=== PATIENT | male | born 1965 | race Caucasian/White ===

== ENCOUNTER 2024-01-16 21:26 | Emergency (ER) | payer MEDICAID, SELFPAY ==
[2024-01-16] VITALS (8 sets, daily range): BP systolic 101–120; BP diastolic 49–70; PULSE 67–95; RESP 16–18; TEMP 36.8; O2SAT 92–98
--- NOTE | 2024-01-16 21:30 | DI.CT_ITS ---
Exam(s) CT HEAD CERV SPINE FACIAL WO EXAM: CT HEAD CERV SPINE FACIAL WO CLINICAL HISTORY: fall, head/facial trauma. TECHNIQUE: Imaging Protocol: Axial computed tomography images with coronal and sagittal reformatted images were created and reviewed COMPARISON: No exams were available for comparison FINDINGS: CT Head: Ventricles and Extra axial spaces: Normal in size and morphology for the patient's age. Hemorrhage: None. Cerebral parenchyma: Normal. Midline shift: None. Brainstem/Cerebellum: Normal. Calvarium: Normal. Visualized Paranasal sinuses/Mastoids: Clear. Soft Tissues: Unremarkable. CT Face: Facial Bones: No definite fracture is noted in facial bones. There is depression fracture of the rig ht nasal bone. No overlying soft tissue swelling is seen. This most likely represents an old fractu re. Sinuses and Mastoids: There is a mucous retention cyst or polyp in the left maxillary sinus. The vi sualized paranasal sinuses are otherwise clear. Globes, extraocular muscles, optic nerves and retrobulbar fat: Normal. Upper aerodigestive tract: Normal. Mandible and bilateral temporomandibular joints: Normal. Soft tissues: There is left periorbital soft tissue swelling. No radiopaque foreign bodies are ident ified. There are few small foci of air in the periorbital soft tissues. CT Cervical Spine: Bones: No acute fracture or subluxation. Age-appropriate degenerative changes are seen in the spine. Soft Tissues: Unremarkable. Lung Apices: Clear. IMPRESSION: 1. No acute intracranial process. 2. No acute fracture or subluxation in the cervical spine. 3. No acute facial fracture. 4. Left periorbital soft tissue swelling with subcutaneous gas. No radiopaque foreign bodies. RADIATION DOSE DELIVERED: 2,145.24mGy.cm Total DLP DATA REPOSITORY: All CT scans at this facility are submitted to the National Radiology Data Registry (NRDR) Dose Index Registry (DIR) with the [employer] (A[employer]). RADIATION OPTIMIZATION: All CT scans at this facility use at least one of these dose optimization te chniques: automated exposure control; mA and/or kV adjustment per patient size (includes targeted exa ms where dose is matched to clinical indication); or iterative reconstruction.
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
--- NOTE | 2024-01-16 22:00 | RT.EKG_ITS ---
APPROVED REPORT Exam: Resting ECG Reason for Exam: fall, possible syncope Patient Location: E HR:74 bpm ECG Measurements Heart Rate 74 AXIS NC 170 P 66 QRSd 84 QRS 41 QT 395 T 21 QTc 438 Conclusion Sinus rhythm...normal P axis, V-rate 60- 99 Ventricular bigeminy...bigeminy string>4 w/ V complexes Borderline ST elevation, anterolateral leads...ST >0.06mV, I aVL V2-V6 appropriate intervals No ST segment or T wave abnormalities to suggest occlusive CO
[2024-01-16 22:25] LABS: Abs Immature Grans 0.04 10^3/uL (0.0-0.06); Absolute Basophil Count 0.05 10^3/uL (0.0-0.2); Absolute Eosinophil Count 0.12 10^3/uL (0.0-0.7); Absolute Lymphocyte Count 2.16 10^3/uL (1.2-3.4); Basophils % 0.7 %; Eosinophils % 1.6 %; HCT 41.5 % (40.0-50.0); HGB 14.3 g/dL (13.5-17.5); Immature Grans % 0.5 %; Lymphocytes % 29.3 %; MCH 33.1 pg (27.0-33.0); MCHC 34.5 % (32.0-36.0); MCV 96 fL (80-95); Monocytes % 8.1 %; Neutrophils % 59.8 %; Platelet Count 197 10^3/uL (130-400); RBC 4.32 10^6/uL (4.36-5.78); RDW 12.8 % (11.8-14.1); RDW-SD 46.1 fL; WBC 7.37 10^3/uL (4.4-10.8)
[2024-01-16 22:47] LABS: ALT 61 U/L (16-63); AST 36 U/L (15-37); Alkaline Phosphatase 81 U/L (46-116); Anion Gap 10.8 mmol/L (3-11); BUN 10 mg/dL (7-18); Bilirubin, Total 0.4 mg/dL (0.2-1.0); CO2 26.2 mmol/L (21.0-32.0); CREATININE 1.1 mg/dL (0.70-1.30); Calcium 8.6 mg/dL (8.5-10.1); Chloride 104 mmol/L (98-107); Estimated GFR 76.85 (mL/min/1.73m2); Glucose 97 mg/dL (74-106); Potassium 3.9 mmol/L (3.5-5.1); Sodium 141 mmol/L (136-145); Total Protein 7.1 g/dL (6.4-8.2)
--- NOTE | 2024-01-16 23:08 | DI.VRAD_ITS ---
PROCEDURE INFORMATION: Exam: CT Head Without Contrast Exam date and time: 01/16/2024 9:54 PM Age: 58 years old Clinical indication: Other: Fall, head/facial trauma TECHNIQUE: Imaging protocol: Computed tomography of the head without contrast. COMPARISON: No relevant prior studies available. FINDINGS: Brain: Normal. No hemorrhage. Unremarkable white matter. No mass effect. Cerebral ventricles: No ventriculomegaly. Paranasal sinuses: There are a few scattered opacified ethmoid air cells. Other paranasal sinuses are unremarkable. Mastoid air cells: Visualized mastoid air cells are well aerated. Bones: Mildly displaced nasal bone fractures, likely chronic. No acute fracture. Soft tissues: Left supraorbital soft tissue swelling and gas, consistent with open wound. Vasculature: Calcified atherosclerotic disease. IMPRESSION: No acute fracture or intracranial hemorrhage. PROCEDURE INFORMATION: Exam: CT Maxillofacial Without Contrast Exam date and time: 01/16/2024 9:54 PM Age: 58 years old Clinical indication: Other: Fall, head/facial trauma TECHNIQUE: Imaging protocol: Computed tomography of the face without contrast. COMPARISON: No relevant prior studies available. FINDINGS: Tubes, catheters and devices: Small fixation wire at the left angle of the mandible. Orbital cavities: Orbits are normal. Globes are unremarkable. Paranasal sinuses: Left maxillary sinus mucous retention cyst. Scattered ethmoid air cell opacification. Other paranasal sinuses are unremarkable. Dental: Periapical lucency of the maxillary left lateral incisor. Other small dental cavities are also present. Vasculature: Calcified atherosclerotic disease. Bones: Mildly displaced nasal bone fractures without overlying soft tissue swelling are likely chronic. Soft tissues: Left supraorbital soft tissue swelling in gas, consistent with open wound. IMPRESSION: 1. Left supraorbital soft tissue injury. 2. Mildly displaced nasal fractures, likely chronic. 3. Mild chronic paranasal sinus disease. PROCEDURE INFORMATION: Exam: CT Cervical Spine Without Contrast Exam date and time: 01/16/2024 9:54 PM Age: 58 years old Clinical indication: Other: Fall, head/facial trauma TECHNIQUE: Imaging protocol: Computed tomography of the cervical spine without contrast. COMPARISON: No relevant prior studies available. FINDINGS: Bones: Mild C3-C4 disc space narrowing and endplate degenerative spurring. Mild multilevel facet arthropathy. No acute fracture or dislocation. Posterior osteophytes and facet arthropathy result in mild left neural foraminal stenosis. No significant central canal or other neural foraminal stenosis. Lungs: Lung apices are normal. Vasculature: Calcified atherosclerotic disease. Soft tissues: Unremarkable. IMPRESSION: 1. No acute fracture. 2. Mild C3-C4 spondylosis. Dictated and Authenticated by: Hamilton Mccullough MD. Ordering:SAMMY Tamez MD
--- NOTE | 2024-01-16 23:19 | ED.PROG_ITS ---
Date of service: 01/16/24 Time of Service: 23:19 Medical Decision Making This patient was signed out to me. Please see previous notes for H&P and initial eval. In brief, 58yo M presenting with heroin intoxication and fall with head strike Unclear if mechanical or syncope, patient does not remember event. Head CT normal and initial bloodwork/EKG reassuring. Signed out pending 3 hour troponin and reassessment after allowed some time to metabolize substances. Troponin negative; would not further pursue acute coronary syndrome. Added ETOH level which was 70. On reassessment patient alert and requesting discharge home. Ambulates steadily independently. Clinically sober. Discharged; discharge instructions and return precautions were reviewed with patient who verbalized understanding. All questions were answered and he is in full agreement with the plan. Lab Data Lab results reviewed: Yes I reviewed the patient's lab results. Labs: Laboratory Tests Range/Units 01/16/24 01/17/24 22:23 00:00 WBC (4.4-10.8) 10^3/uL 7.37 RBC (4.36-5.78) 10^6/uL 4.32 L Hgb (13.5-17.5) g/dL 14.3 Hct (40.0-50.0) % 41.5 MCV (80-95) fL 96 H MCH (27.0-33.0) pg 33.1 H MCHC (32.0-36.0) % 34.5 RDW (11.8-14.1) % 12.8 Plt Count (130-400) 10^3/uL 197 MPV (8.0-11.0) fL 9.0 Immature Gran % % 0.5 Neutrophils % % 59.8 Lymphocytes % % 29.3 Monocytes % % 8.1 Eosinophils % % 1.6 Basophils % % 0.7 Nucleated RBC % (0.0-0.3) % 0.0 Absolute Neutrophils (1.2-6.7) 10^3/uL 4.40 Absolute Lymphocytes (1.2-3.4) 10^3/uL 2.16 Absolute Monocytes (0.1-0.8) 10^3/uL 0.60 Absolute Eosinophils (0.0-0.7) 10^3/uL 0.12 Absolute Basophils (0.0-0.2) 10^3/uL 0.05 Sodium (136-145) mmol/L 141 Potassium (3.5-5.1) mmol/L 3.9 Chloride (98-107) mmol/L 104 Carbon Dioxide (21.0-32.0) mmol/L 26.2 Anion Gap (3-11) mmol/L 10.8 BUN (7-18) mg/dL 10 Creatinine (0.70-1.30) mg/dL 1.1 Est GFR (CKD-EPI 2020) (mL/min/1.73m2) 76.85 Glucose (74-106) mg/dL 97 Calcium (8.5-10.1) mg/dL 8.6 Total Bilirubin (0.2-1.0) mg/dL 0.4 AST (15-37) U/L 36 ALT (16-63) U/L 61 Alkaline Phosphatase (46-116) U/L 81 Troponin I (< or =60) ng/L < 50 Total Protein (6.4-8.2) g/dL 7.1 Albumin (3.4-5.0) g/dL 4.0 Ethyl Alcohol (<10) mg/dL 70.1 H Quality:SDOH Health Related Social Needs: No Data to Display Sign Out Sign Out Data: Sign Out Comment: Fall - related to acute heroin or polysubstance intox Soft tissue facial abrasions need simple wound care. Trop at 0030 pending. with MTF. D/C likely Last updated by Dashawn Little PA at 01/16/24 23:11 Discharge Plan Disposition Patient Disposition: Home Condition: Stable Discharge Details Clinical Impression: Fall Primary Care Provider: Rufino Jeffries ED Provider: Jasmyn Bauer Home Meds and New Rx's Prescriptions: Continued meloxicam 7.5 mg tablet 7.5 mg PO DAILY Rx Instructions: Take orally 1 tab at night for 7 days nitroglycerin 0.4 mg tablet, sublingual 0.4 mg sublingual Q5M PRN (Reason: chest pain) Qty: 20 2RF Rx Instructions: do not exceed 3 doses per episode aspirin [Hollie Low Dose Aspirin] 81 mg tablet,delayed release (DR/EC) 81 mg PO DAILY Qty: 90 3RF Discharge Instructions Instructions: Head injury in adults, Abrasions ED Additional Instructions: You were seen in the emergency department for your fall with left-sided abrasions most focal to your face. These are superficial and do not appear to have any acute emergent intracranial pathology or cervical spine fracture. Please treat them by keeping them clean and dry and using OTC antibiotic ointments and normal wound care. Your EKG shows no signs of cardiac cause of syncope, we are checking a troponin, your basic labs are normal. Please cessate heroin and other illicit substance use especially in conjunction with alcohol as this is a significant risk to your health as well as further falls causing pao gerous traumas. Please return to the emergency department for any emergent concerns including further falls, fevers, chest pain, shortness of breath. Referrals: Rufino Jeffries DO [Primary Care Provider] -
[2024-01-17 00:17] LABS: ETHANOL BLOOD 70.1 mg/dL (<10)
[2024-01-17 00:23] LABS: Troponin I < 50 ng/L (< or =60)
[2024-01-17 00:53] VITALS: BP 125/65; PULSE 68; RESP 16; TEMP 36.8; O2SAT 98
== END 2024-01-17 00:53 | disposition home or self-care (01) ==
PROVIDERS: Physician Assistant; Emergency Provider Student in an Organized Health Care Education/Training Program; PCP Family Medicine
DX: F10.129 Alcohol abuse with intoxication, unspecified (principal); F11.129 Opioid abuse with intoxication, unspecified; Y90.3 Blood alcohol level of 60-79 mg/100 ml; W19.XXXA Unspecified fall, initial encounter; S00.81XA Abrasion of other part of head, initial encounter
CPT/HCPCS: 00123; 12013; 80053; 93005; 99285; 70450; 70486; 72125; 80320; 84484; 85025; 93010

== ENCOUNTER 2024-02-19 21:40 | Emergency (ER) | payer MEDICAID, SELFPAY ==
[2024-02-19] VITALS (25 sets, daily range): BP systolic 91–128; BP diastolic 52–83; PULSE 62–84; RESP 10–30; TEMP 36.6; O2SAT 93–96
--- NOTE | 2024-02-19 21:30 | RT.EKG_ITS ---
APPROVED REPORT Exam: Resting ECG Reason for Exam: OD Patient Location: E HR:79 bpm ECG Measurements Heart Rate 79 AXIS MO 180 P 61 QRSd 90 QRS 0 QT 383 T 24 QTc 439 Conclusion Sinus rhythm at a rate of 79 without acute ischemic change with normal intervals
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
[2024-02-20] VITALS (12 sets, daily range): BP systolic 103–109; BP diastolic 60–71; PULSE 60–63; RESP 15–19; O2SAT 93–96
== END 2024-02-20 01:42 | disposition home or self-care (01) ==
PROVIDERS: Emergency Provider Emergency Medicine; PCP Family Medicine
DX: T40.1X1A Poisoning by heroin, accidental (unintentional), initial encounter (principal); F19.10 Other psychoactive substance abuse, uncomplicated; I10 Essential (primary) hypertension; E78.5 Hyperlipidemia, unspecified; I25.10 Atherosclerotic heart disease of native coronary artery without angina pectoris; Z59.01 Sheltered homelessness; Z79.82 Long term (current) use of aspirin
CPT/HCPCS: 36415; 93005; 99283; 93010

== ENCOUNTER 2024-04-20 07:20 | Observation (INO) | payer OTHER, SELFPAY ==
[2024-04-20] VITALS (47 sets, daily range): BP systolic 102–134; BP diastolic 48–92; PULSE 52–79; RESP 12–28; TEMP 36.4–37.6; O2SAT 95–100
--- NOTE | 2024-04-20 07:00 | RT.EKG_ITS ---
APPROVED REPORT Exam: Resting ECG Reason for Exam: chest pain Patient Location: E HR:69 bpm ECG Measurements Heart Rate 69 AXIS WV 157 P 77 QRSd 77 QRS 36 QT 400 T 43 QTc 427 Conclusion Sinus rhythm, rate 69 PVCs No interval abnormalities No STEMI
--- NOTE | 2024-04-20 07:15 | DI.RAD_ITS ---
Exam(s) XR PORTABLE CHEST AP EXAM: XR PORTABLE CHEST AP CLINICAL HISTORY: CP TECHNIQUE: 2D digital imaging was performed. COMPARISON: No exams were available for comparison FINDINGS: LUNGS: Clear. No pleural abnormality seen. HEART: Normal size. AORTA: Normal diameter. BONES: Unremarkable for age. Soft tissues: Unremarkable. IMPRESSION: No acute findings. DATA REPOSITORY: RADIATION DOSE DELIVERED:
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
--- NOTE | 2024-04-20 07:30 | RT.EKG_ITS ---
APPROVED REPORT Exam: Resting ECG Reason for Exam: Right sided Patient Location: E HR:63 bpm ECG Measurements Heart Rate 63 AXIS WY 149 P 66 QRSd 88 QRS 19 QT 405 T 40 QTc 412 Conclusion RIGHT SIDED EKG Sinus rhythm with PVCS Rate 63 Q waves v5r and v6r No STEMI
[2024-04-20] MEDS: Aspirin 81 MG CHEW 324 MG CH (07:35)
[2024-04-20 07:52] LABS: Abs Immature Grans 0.02 10^3/uL (0.0-0.06); Absolute Basophil Count 0.06 10^3/uL (0.0-0.2); Absolute Eosinophil Count 0.19 10^3/uL (0.0-0.7); Absolute Lymphocyte Count 2.55 10^3/uL (1.2-3.4); Absolute Monocyte Count 0.67 10^3/uL (0.1-0.8); Absolute Neutrophil Count 2.57 10^3/uL (1.2-6.7); Eosinophils % 3.1 %; HCT 43.6 % (40.0-50.0); HGB 14.7 g/dL (13.5-17.5); Immature Grans % 0.3 %; Lymphocytes % 42.1 %; MCH 32.7 pg (27.0-33.0); MCHC 33.7 % (32.0-36.0); MCV 97 fL (80-95); Monocytes % 11.1 %; Neutrophils % 42.4 %; Platelet Count 190 10^3/uL (130-400); RDW 13.2 % (11.8-14.1); WBC 6.06 10^3/uL (4.4-10.8)
[2024-04-20 08:11] LABS: ALT 20 U/L (16-63); AST 21 U/L (15-37); Albumin 3.4 g/dL (3.4-5.0); Alkaline Phosphatase 82 U/L (46-116); Anion Gap 6.3 mmol/L (3-11); BUN 19 mg/dL (7-18); Bilirubin, Total 0.74 mg/dL (0.2-1.0); CO2 27.7 mmol/L (21.0-32.0); Calcium 9.2 mg/dL (8.5-10.1); Chloride 104 mmol/L (98-107); Estimated GFR 86.16 (mL/min/1.73m2); Glucose 100 mg/dL (74-106); Magnesium 1.8 mg/dL (1.8-2.4); NT-proBNP 136 pg/mL (<300); Potassium 4.1 mmol/L (3.5-5.1); Sodium 138 mmol/L (136-145); TSH 1.86 uIU/Ml (0.36-3.74); Total Protein 6.5 g/dL (6.4-8.2); Troponin I 8 ng/L (<or=76)
[2024-04-20 09:02] LABS: Troponin I 7 ng/L (<or=76)
--- NOTE | 2024-04-20 10:01 | DI.VRAD_ITS ---
PROCEDURE INFORMATION: Exam: XR Chest Exam date and time: 04/20/2024 8:22 AM Age: 58 years old Clinical indication: Pain; Radiating TECHNIQUE: Imaging protocol: Radiologic exam of the chest. Views: 1 view. COMPARISON: CT HEAD CERV SPINE FACIAL WO 01/16/2024 9:54 PM FINDINGS: Lungs: Unremarkable. No consolidation. Pleural spaces: Unremarkable. No pleural effusion. No pneumothorax. Heart/Mediastinum: Unremarkable. No cardiomegaly. Bones/joints: Unremarkable. IMPRESSION: No acute findings. Dictated and Authenticated by: Clifford Gandhi MD. Ordering:CARLOS Donis MD
[2024-04-20] MEDS: Normal Saline Flush 10 ML SYR IVP ×3 (10:25→21:34)
--- NOTE | 2024-04-20 11:20 | W.PC.ACHO ---
Registration Status: Primary Language: Preferred Language: ED Information & Data Chief Complaint Chest Pain 04/20/24 07:27 Triage Note pt arrives via ems with 04/20/24 07:14 corrections officers c/o ache in chest, fatigue, heart burn and dizziness. denies SOB. corrections found pt to be in sinus tonya at a rate of 32 with bigeminy. cardiac hx with stent. Medical / Surgical History (Last Updated 01/15/24 @ 14:11 by Darby Burkett) Alcoholism Polysubstance abuse Arthralgia of left ankle or foot Other bursal cyst, left wrist (Last Updated 01/15/24 @ 14:11 by Darby Burkett) History of arthroplasty of knee H/O heart artery stent (~06/05/13) History of left knee replacement (~2008) Most Recent Vital Signs Temperature 36.7 C 04/20/24 07:14 Temperature Source Oral 04/20/24 07:14 Pulse 58 L 04/20/24 10:15 Pulse 66 04/20/24 10:50 Respiratory Rate 17 04/20/24 10:50 Respiratory Effort Normal 04/20/24 07:37 Respiratory Depth Normal 04/20/24 07:37 Respiratory Pattern Normal 04/20/24 07:37 Blood Pressure 134/70 04/20/24 10:46 Blood Pressure Mean 81 04/20/24 10:46 Pulse Oximetry 100 04/20/24 10:50 Oxygen Delivery Method Room Air 04/20/24 07:14 Oxygen Flow Rate 0 04/20/24 07:14 Pain Level 7 04/20/24 07:14 Comment bilateral hip pain - chronic issue 04/20/24 07:14 Allergies Penicillins Allergy (Verified 04/20/24 07:22) Unknown sulfamethoxazole (From Bactrim) Adverse Reaction (Severe, Verified 04/20/24 07:22) Nausea Patient reports severe nausea trimethoprim (From Bactrim) Adverse Reaction (Severe, Verified 04/20/24 07:22) Nausea Patient reports severe nausea acetaminophen (From Vicodin) Adverse Reaction (Unknown, Verified 04/20/24 07:23) Other (See Comment) hydrocodone (From Vicodin) Adverse Reaction (Unknown, Verified 04/20/24 07:23) Other (See Comment) tramadol Adverse Reaction (Unknown, Verified 04/20/24 07:23) Other (See Comment) Precautions Isolation Standard precaution 04/20/24 07:25 Active Medications Generic Name Dose Route Start Last Admin Trade Name Nicolas PRN Reason Stop Dose Admin Sodium Chloride 0 ml 04/20/24 08:30 04/20/24 10:25 Normal Saline Flush 10 Ml Syr IVP 10 ml BID RUSS Administration IV IV Catheter Type [Left Forearm Saline Lock ] IV Catheter Gauge [Left 20 Forearm] Diagnostics 04/20/24 04/20/24 04/20/24 Range/Units 10:22 08:42 07:40 WBC 6.06 (4.4-10.8) 10^3/uL RBC 4.50 (4.36-5.78) 10^6/uL Hgb 14.7 (13.5-17.5) g/dL Hct 43.6 (40.0-50.0) % MCV 97 H (80-95) fL MCH 32.7 (27.0-33.0) pg MCHC 33.7 (32.0-36.0) % RDW 13.2 (11.8-14.1) % Plt Count 190 (130-400) 10^3/uL MPV 9.0 (8.0-11.0) fL Immature Gran % 0.3 % Neutrophils % 42.4 % Lymphocytes % 42.1 % Monocytes % 11.1 % Eosinophils % 3.1 % Basophils % 1.0 % Nucleated RBC % 0.0 (0.0-0.3) % Absolute Neutrophils 2.57 (1.2-6.7) 10^3/uL Absolute Lymphocytes 2.55 (1.2-3.4) 10^3/uL Absolute Monocytes 0.67 (0.1-0.8) 10^3/uL Absolute Eosinophils 0.19 (0.0-0.7) 10^3/uL Absolute Basophils 0.06 (0.0-0.2) 10^3/uL Sodium 138 Potassium 4.1 Chloride 104 Carbon Dioxide 27.7 Anion Gap 6.3 BUN 19 H Creatinine 1.0 Est GFR (CKD-EPI 2020) 86.16 Glucose 100 Calcium 9.2 Magnesium 1.8 Total Bilirubin 0.74 AST 21 ALT 20 Alkaline Phosphatase 82 Troponin I Cancelled 7 8 (<or=76) ng/L NT-Pro-B Natriuret Pep 136 (<300) pg/mL Total Protein 6.5 Albumin 3.4 TSH 1.86 B. divergens/MO-1 PCR Pending Babesia duncani (PCR) Pending Babesia microti DNA PCR Pending Lyme Disease Antibody Pending E.chaffeensis DNA (PCR) Pending E.ewingii/canis DNA PCR Pending E.muris eauclairensis (PCR) Pending A. phagocytophilum (PCR) Pending Blood B. miyamotoi (PCR) Pending 04/20/24 04/20/24 Range/Units 07:30 07:22 WBC (4.4-10.8) 10^3/uL RBC (4.36-5.78) 10^6/uL Hgb (13.5-17.5) g/dL Hct (40.0-50.0) % MCV (80-95) fL MCH (27.0-33.0) pg MCHC (32.0-36.0) % RDW (11.8-14.1) % Plt Count (130-400) 10^3/uL MPV (8.0-11.0) fL Immature Gran % % Neutrophils % % Lymphocytes % % Monocytes % % Eosinophils % % Basophils % % Nucleated RBC % (0.0-0.3) % Absolute Neutrophils (1.2-6.7) 10^3/uL Absolute Lymphocytes (1.2-3.4) 10^3/uL Absolute Monocytes (0.1-0.8) 10^3/uL Absolute Eosinophils (0.0-0.7) 10^3/uL Absolute Basophils (0.0-0.2) 10^3/uL Sodium Cancelled Potassium Cancelled Chloride Cancelled Carbon Dioxide Cancelled Anion Gap Cancelled BUN Cancelled Creatinine Cancelled Est GFR (CKD-EPI 2020) Cancelled Glucose Cancelled Calcium Cancelled Magnesium Cancelled Total Bilirubin Cancelled AST Cancelled ALT Cancelled Alkaline Phosphatase Cancelled Troponin I (<or=76) ng/L NT-Pro-B Natriuret Pep (<300) pg/mL Total Protein Cancelled Albumin Cancelled TSH Cancelled B. divergens/MO-1 PCR Babesia duncani (PCR) Babesia microti DNA PCR Lyme Disease Antibody E.chaffeensis DNA (PCR) E.ewingii/canis DNA PCR E.muris eauclairensis (PCR) A. phagocytophilum (PCR) Blood B. miyamotoi (PCR) Intake and Output - 24 Hour Total 04/20/24 07:05 thru 04/20/24 07:14 Weight 73.6 kg Falls Risk Assessment Contributing Factors No Factors 04/20/24 07:39 Fall Total Score 0 04/20/24 07:39 Level of Risk Standard/Low Risk 04/20/24 07:39 v v v v v v v v v Sending and/or Receiving Nurses: Please use comment section below to note any information pertinent to the patient hand-off not included above. Information / Comments: HR in the 30s w/ dizziness @ the correctional facility. He has been in the 50-60s on telemetry since ED admission w/ PVCs. Patient asymptomatic since being here. Chronic bilateral hip pain. 02/12 Hx OK in 2012 w/ stent Hx of alcohol abuse Report received from: Lucy Arrizaa RN
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
[2024-04-20 12:49] LABS: Mono Screening Negative (Negative)
[2024-04-20 13:00] LABS: Troponin I 10 ng/L (<or=76)
[2024-04-20 13:02] LABS: C-Reactive Protein < 0.50 mg/dL (<or=0.5)
[2024-04-20] MEDS: Enoxaparin 40 MG/0.4 ML SYR SC (13:45)
[2024-04-20 14:31] LABS: COVID-19 PCR Negative (Negative); Influenza A PCR Negative (Negative); Influenza B PCR Negative (Negative); RSV PCR Negative (Negative)
[2024-04-20 14:37] LABS: Source Nasopharynx
[2024-04-20 18:08] LABS: *AMPHETAMINES SCREEN URINE Negative (Negative); *BARBITURATES SCREEN URINE Negative (Negative); *BENZODIAZEPINES SCREEN URINE Negative (Negative); Cannabinoids THC Positive (Negative); Cocaine Screen,Urine Negative (Negative); METHADONE URINE SCREEN Negative (Negative); OPIATES URINE SCREEN Negative (Negative)
[2024-04-20 18:14] LABS: Tricyclic Antidepressants Negative (Negative)
--- NOTE | 2024-04-20 21:39 | NUR.NOTE ---
Nursing Note: 2119 Noted patient had converted to bigeminy rhythm, I obtained a set of vital signs on the patient and he commented that he has this happen every evening around 9:30 and that his heart rate falls into the 30's. I spoke with the patient about his heart rhythm a little to educate him on the situation. His vital signs were similar to the ones taken just an hour before with reduced heart rate of 55 and blood pressure of 104/66. After speaking with the patient and returning to the nursing station, I noted that the patient had converted rhythm back to sinus bradycardia.
--- NOTE | 2024-04-21 | DI.US_ITS ---
APPROVED REPORT EXAM: Comprehensive 2D, Doppler, and color-flow Echocardiogram Patient Location: In-Patient Room/Bed: 230 [address] Medical Examiner: Dunia Stephens RDCS (AE) Indications: Ventricular bigeminy, evaluate for LV Dysfunction, HTN, CAD, ETOH Other Information Study Quality: Fair. Technically limited study due to body habitus, inability to position patient exa m done supine. Conclusion Technically difficult but adequate study Normal left ventricular wall thickness chamber size and overall systolic function. Ejection fraction is estimated visually at 55 to 60%. No segmental wall motion abnormalities are identified Normal right ventricular size and function Both atria are normal in size There are no structural valvular abnormalities Mild mitral regurgitation Wall motion Left Ventricle Technically limited imaging window. The overall left ventricular systolic function appears normal. Ar rhythmia throughout exam. Regional wall motion is not well visualized but grossly normal. Right Ventricle Right ventricle is not well visualized. Right ventricular systolic function could not be assessed. Atria The left atrium size is normal. The right atrium size is normal. Aortic Valve The aortic valve is normal in structure. Aortic valve is trileaflet. There is no aortic valvular sten osis. No aortic regurgitation is present. Mitral Valve The mitral valve is normal in structure. No evidence of mitral valve stenosis. Mild mitral regurgita tion. Tricuspid Valve The tricuspid valve is normal in structure. There is no tricuspid valve stenosis. Trace tricuspid reg urgitation. Unable to assess PA pressure. Pulmonic Valve The pulmonary valve is normal in structure. There is no pulmonic valvular stenosis. There is no pulmo luanne valvular regurgitation. Great Vessels The aortic root is normal in size. Ascending aorta is not well visualized. Aortic arch is not well vi sualized. IVC is normal in size and collapses >50% with inspiration. Pericardium There is no pericardial effusion. 2D Dimensions Ao Root d 3.34 cm M: 3.1 - 3.7 LV Diastology MV E Vmax 0.53 (0.4-1.3 m/s) Aortic Valve AoV Vmax 1.45 m/s LVOT Vmax 1.22 m/s AoV Peak Grad 8.4 mmHg LVOT Peak Grad 5.9 mmHg AoV Area (Vmax) 2.73 cm2 LVOT VTI 0.242 m AoV VTI 0.256 m LVOT Mean Grad 3.1 mmHg AoV Mean Sudhir. 0.99 m/s LVOT SV 78.49 mL AoV Mean Grad 4.4 mmHg LVOT Diam s 2.00 cm AoV Area (VTI) 3.07 cm2 AV Regurg Peak Gr. 8.38 mmHg Velocity Ratio 0.84 Mitral Valve MV Vmax TIPS 0.62 m/s MV Mean Grad 0.3 (<2mmHg) MV Area PHT 3.11 cm2 MV VTI 0.272 m Pulmonary Valve PV Vmax 1.34 (0.5-1.5 m/s) RVOT Vmax 0.79 m/s PV Peak Grad 7.1 mmHg RVOT Peak Gr. 2.5 mmHg PV Mean Sudhir 0.93 m/s RVOT VTI 0.193 m PV Mean Grad 3.9 mmHg RVOT Mean Gr. 1.5 mmHg
[2024-04-21 04:16] VITALS: BP 111/64; PULSE 63; RESP 16; TEMP 37; O2SAT 96
[2024-04-21 07:32] VITALS: BP 108/70; PULSE 37; RESP 17; TEMP 36.9; O2SAT 97
--- NOTE | 2024-04-21 08:00 | RT.EKG_ITS ---
APPROVED REPORT Exam: Resting ECG Reason for Exam: ventricular bigeminy Patient Location: I HR:95 bpm ECG Measurements Heart Rate 95 AXIS AL 159 P 78 QRSd 84 QRS 38 QT 398 T 41 QTc 501 Conclusion Sinus rhythm...normal P axis, V-rate 50- 99 Ventricular bigeminy...bigeminy string>4 w/ V complexes
[2024-04-21] MEDS: Aspirin E.C. 81 MG TABEC PO (09:14)
[2024-04-21] MEDS: Normal Saline Flush 10 ML SYR IVP (09:14)
[2024-04-21] MEDS: Meloxicam 15 MG TAB PO (09:14)
[2024-04-21 10:52] VITALS: PULSE 71
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
[2024-04-21 13:05] LABS: Lyme Ab w Rflx to Lyme Confirm Negative (Negative)
--- NOTE | 2024-04-21 13:48 | NUR.NOTE ---
Reviewed dori with student Eduardo CURIEL and agree with documented assessment. Primary nurse updated on any findings. Donald Olvera, MSN,RNC-OB
--- NOTE | 2024-04-21 13:49 | NUR.NOTE ---
Reviewed documentation with student Eddy CURIEL and agree with documented assessment. Primary nurse updated on any findings. Donald Olvera, MSN,RNC-OB
[2024-04-21 15:21] VITALS: BP 124/61; PULSE 70; RESP 17; TEMP 37.2; O2SAT 98
[2024-04-21] MEDS: Enoxaparin 40 MG/0.4 ML SYR SC (15:39)
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
[2024-04-23 00:21] LABS: Anaplasma phagocytophilum Negative (Negative); B. miyamotoi PCR Negative (Negative); Babesia divergens/MO-1 Negative (Negative); Babesia duncani Negative (Negative); Babesia microti Negative (Negative); Ehrlichia chaffeensis Negative (Negative); Ehrlichia ewingii/canis Negative (Negative); Ehrlichia muris eauclairensis Negative (Negative)
== END 2024-04-21 18:15 ==
LOC: ER 08:02 → MS 11:28
PROVIDERS: Admitting Provider Internal Medicine; Emergency Provider Emergency Medicine; PCP Family Medicine; Visit Provider Internal Medicine
DX: I49.3 Ventricular premature depolarization (principal); I25.10 Atherosclerotic heart disease of native coronary artery without angina pectoris; G89.4 Chronic pain syndrome; F10.139 Alcohol abuse with withdrawal, unspecified; Z79.899 Other long term (current) drug therapy; E78.5 Hyperlipidemia, unspecified; M54.2 Cervicalgia; J45.909 Unspecified asthma, uncomplicated; F43.10 Post-traumatic stress disorder, unspecified; F17.210 Nicotine dependence, cigarettes, uncomplicated; I25.2 Old myocardial infarction; Z95.5 Presence of coronary angioplasty implant and graft; Z59.01 Sheltered homelessness; F41.1 Generalized anxiety disorder; R00.1 Bradycardia, unspecified; F33.1 Major depressive disorder, recurrent, moderate
CPT/HCPCS: 00123; 36415; 80053; 80307; 87637; 87798; 93005; 99285; J1650; 71045; 83735; 83880; 84443; 84484; 85025; 86140; 86308; 86618; 93010; 93306; 99222; 99239; G0378